=== PATIENT | male | born 1945 | race Caucasian/White ===

== ENCOUNTER 2016-07-16 16:48 | Emergency (ER) | payer MEDICARE, OTHER ==
[~2016-07-16 16:48] MED LIST: ACETAMINOPHEN PR; ANTIVERT PO; BACTRIM DS TABL1 TA1 PO; KEFLEX500 MG PO; MACROBID100 M1 PO; NO MEDICATIONS; OMEPRAZOLE40 M1 PO; PRILOSEC PO; VICODIN 5/1 TAB 5/50 PO
== END 2016-07-16 18:17 | disposition hospice, home (50) ==
LOC: SED 16:48
DX: S01.311A Laceration without foreign body of right ear, initial encounter (principal); X58.XXXA Exposure to other specified factors, initial encounter
CPT/HCPCS: 99285

== ENCOUNTER 2016-07-18 14:04 | Emergency (ER) | payer MEDICARE, OTHER | END 2016-07-18 14:21 | disposition home or self-care (01) | LOC: SED 14:04 | DX: H60.11 Cellulitis of right external ear (principal); Z23 Encounter for immunization | CPT/HCPCS: 90471; 90715; 96372; 99283 ==

== ENCOUNTER 2016-09-20 15:23 | Emergency (ER) | payer MEDICARE, OTHER | END 2016-09-20 16:11 | disposition home or self-care (01) | LOC: SED 15:23 | DX: B35.6 Tinea cruris (principal) | CPT/HCPCS: 99282 ==